=== PATIENT | male | born 1975 | race Two or more races ===

== ENCOUNTER 2016-07-17 14:47 | Emergency (ER) | payer OTHER ==
--- NOTE | 2016-07-17 15:23 | EDPHY ---
H & P Time Seen by Provider: 07/17/16 15:00 HPI/ROS: CHIEF COMPLAINT: right index finger pain HISTORY OF PRESENT ILLNESS: 41-year-old male presents emergency department reporting he got a splinter in his right index finger yesterday at work. He states he felt going to, had minimal pain afterwards, this morning he woke up to a mild ache and itching sensation, a scratch the tip of his finger and he has had increasing pain and pressure since this time. Tetanus is not up-to- date. Patient denies numbness or tingling in his finger. Patient states he had to leave work due to the pain. He is right-hand. Smoking Status: Current every day smoker Physical Exam: GEN: Awake, alert, oriented, no acute distress RESP: nl resp effort MSK: Right index finger with full flexion and extension, mild swelling significant talus to dorsal aspect right index finger just proximal to fingernail, cap refill less than 2 seconds, 2 point discrimination intact SKIN: Small foreign body and shins to dorsal aspect of right index finger proximal to fingernail Constitutional: Initial Vital Signs Temperature (C) 36.4 C 07/17/16 14:51 Heart Rate 90 07/17/16 14:51 Respiratory Rate 16 07/17/16 14:51 Blood Pressure 120/59 L 07/17/16 14:51 O2 Sat (%) 96 07/17/16 14:51 O2 Delivery Mode Room Air Allergies/Adverse Reactions: No Known Allergies Allergy (Unverified 07/17/16 14:51) Home Medications: Medication Instructions Recorded Cephalexin [Keflex] 500 mg PO QID 5 Days 07/17/16 MDM/Departure - MDM Imaging Results: Imaging Impressions Finger X-Ray 07/17/16 15:18 Impression: Negative radiographs of the right index finger. Procedures: Procedure: Paronychia, foreign body search Right index finger was anesthetized using a digital block with 1% lidocaine without epinephrine mixed with 0.5% bupivacaine without epinephrine scalpel was used small incision made at base of fingernail, purulent drainage returned, no splinter or foreign body was visualized Medications Given: Discontinued Medications Diphtheria/Tetanus/Acell Pertussis (Boostrix) 0.5 ml IM .ONCE ONE Stop: 07/17/16 15:28 Last Admin: 07/17/16 15:37 Dose: 0.5 ml - Depart Disposition: Home, Routine, Self-Care Clinical Impression: Foreign body of right index finger with infection Condition: Good Instructions: Soft Tissue Foreign Body (ED) Additional Instructions: Soak your finger in warm water 5 times a day for 10 minutes. Take 500 mg of Keflex 4 times a day for 5 days. Follow up with the worker's compensation doctor for re-evaluation. Return to the emergency department for worsening symptoms, new symptoms or concerns. Stand Alone Forms: Work Comp Follow Up Prescriptions: Cephalexin [Keflex] 500 mg PO QID 5 Days
[2016-07-17] MEDS ORDERED: TDAP ADULT 0.5 ML INJ (BOOSTRIX) IM ONE (15:27)
[2016-07-17 16:35] VITALS: PULSE 76; TEMP 97.9
[2016-07-17 16:46] VITALS: BP 112/80; RESP 16; O2SAT 95
== END 2016-07-17 16:46 | disposition home or self-care (01) ==
PROC: 0J9J0ZZ Drainage of Right Hand Subcutaneous Tissue and Fascia, Open Approach (ICD-10-PCS; principal; 2016-07-17)
DX: S60.450A Superficial foreign body of right index finger, initial encounter (principal); L08.9 Local infection of the skin and subcutaneous tissue, unspecified; F17.200 Nicotine dependence, unspecified, uncomplicated; Z23 Encounter for immunization; W45.8XXA Other foreign body or object entering through skin, initial encounter; Y92.69 Other specified industrial and construction area as the place of occurrence of the external cause; Y99.0 Civilian activity done for income or pay; Y93.89 Activity, other specified